=== PATIENT | female | born 1995 | race African-American/Black ===

== ENCOUNTER 2020-05-26 14:06 | Emergency (ER) | payer OTHER ==
[2020-05-26 14:20] VITALS: BMI 26.4
--- NOTE | 2020-05-26 14:27 | PDOC ---
History of Present Illness - General Chief Complaint: Blood Transfusion Stated Complaint: Blood Transfusion Time Seen by Provider: 05/26/20 14:26 History Source: Patient Exam Limitations: No Limitations - History of Present Illness Initial Comments: 05/26/20 14:26 Shwetha Viveros is a 25F @39 weeks with PMH iron deficiency anemia on iron supplementation sent by OFFICE ASSISTANT Dr. Mcekon for low Hgb and admission for blood transfusion. Patient has been longstanding iron-deficiency anemia on iron supplementation. Last was anemic but not low enough to need transfusion, had baby girl by . Currently at 39 weeks gestation without any complications, no HTN or DM. Seen by Dr. Mckeon, scheduled for elective on 06/01/20. Last Hgb 6.3, sent by OFFICE ASSISTANT for transfusion given she is to have surgery soon. Patient reports SOB when walking up stairs, much worse than baseline. Denies chest pain, orthostatic dizziness, difficulty breathing at rest. No N/V, no C/D, no bloody stools or vaginal bleeding. Has been taking iron pills without any r elief of symptoms. Never had blood transfusion before. Eating and drinking well without any issues. No urinary symptoms. No other PMH or PSH, no meds taken. Allergy to PCN is hives/rash. Denies alcohol/drugs/tobacco. Past History - Medical History Allergies/Adverse Reactions: Allergies Allergy/AdvReac Type Severity Reaction Status Date / Time Penicillins Allergy Intermediate Rash Verified 05/26/20 15:54 COPD: No - Reproductive History Is Patient Now?: Yes - Psycho-Social/Smoking History Smoking History: Never smoked Have you smoked in the past 12 months: No - Substance Abuse Hx (Audit-C & DAST Scrn) How often the patient has a drink containing alcohol: Never Score: In Men: 4 or > Positive; In Women: 3 or > Positive: 0 Screen Result (Pos requires Nsg. Audit-10AR): Negative In the last yr the pt used illegal drug/Rx for NonMed reason: No Score: Yes response is considered Positive: 0 Screen Result (Positive result requires Nsg. DAST-10): Negative Review of Systems - Review of Systems Able to Perform ROS?: Yes Constitutional: No: Symptoms Reported HEENTM: No: Symptoms Reported Respiratory: Yes: SOB with Exertion. No: Cough, Orthopnea, Shortness of Breath, SOB at Rest Cardiac (ROS): No: Chest Pain, Edema, Irregular Heart Rate, Lightheadedness, Palpitations, Syncope, Chest Tightness ABD/GI: No: Symptoms Reported : No: Symptoms Reported Musculoskeletal: No: Symptoms Reported Integumentary: No: Symptoms Reported Neurological: No: Symptoms reported Endocrine: No: Symptoms Reported Hematologic/Lymphatic: Yes: Anemia. No: Blood Clots, Easy Bleeding All Other Systems: Reviewed and Negative *Physical Exam - Vital Signs Last Vital Signs Temp Pulse Resp BP Pulse Ox 98.6 F 64 18 116/68 100 05/26/20 14:13 05/26/20 14:13 05/26/20 14:13 05/26/20 14:13 05/26/20 14:13 - Physical Exam General Appearance: Yes: Nourished, Appropriately Dressed, Other (gravid abdomen, resting in bed in NAD). No: Apparent Distress HEENT: positive: EOMI, RO, Normal Voice, Symmetrical, Pharynx Normal. negative: Scleral Icterus (R), Scleral Icterus (L), Pharyngeal Erythema, Tonsillar Exudate, Tonsillar Erythema Neck: positive: Normal Thyroid, Supple. negative: Tender, Rigid, Lymphadenopathy (R), Lymphadenopathy (L) Respiratory/Chest: positive: Lungs Clear, Normal Breath Sounds. negative: Chest Tender, Respiratory Distress, Accessory Muscle Use, Crackles, Rales, Rhonchi, Stridor, Wheezing Cardiovascular: positive: Regular Rhythm, Regular Rate. negative: Murmur Gastrointestinal/Abdominal: positive: Normal Bowel Sounds, Soft, Protuberent (gravid consistent with gestational age), Distended. negative: Tender, Organomegaly, Pulsatile Mass, Rebound, Tenderness Musculoskeletal: positive: Normal Inspection. negative: CVA Tenderness, CVA Tenderness (R), CVA Tenderness (L), Decreased Range of Motion, Vertebral Tenderness Extremity: positive: Normal Capillary Refill, Normal Inspection, Normal Range of Motion, Pelvis Stable. negative: Tender, Pedal Edema, Swelling Integumentary: positive: Normal Color, Dry, Warm Neurologic: positive: Fully Oriented, Alert, Normal Mood/Affect, Normal Response ED Treatment Course - LABORATORY CBC & Chemistry Diagram: 05/26/20 16:00 05/26/20 16:00 Medical Decision Making - Medical Decision Making 05/26/20 14:26 Patient has known history of anemia at 39 weeks, scheduled for in 6 days, sent for blood transfusion for symptomatic anemia and pre-op. Has had dirty UA asymptomatic bactiuria for the last month per records, never treated. Exam unremarkable, VSS. Getting repeat labs for eval anemia, ECG, UA/UC. Discussed benefits/risks od blood transfusion, patient consented to blood transfusion if needed. Contacting Dr. Mckeon for further clarification of anemia and UTI treatment. 05/26/20 15:27 ECG notable for sinus bradycardia, HR 59, QTc 417, no ESTEVAN/D, non-specific TWI in III, V2-V3. 05/26/20 15:[address] Mckeon, who would just like 2 units pRBCs and can be discharged after, not symptomatically anemia outpatient. Regarding prior UA, consistently contaminated, does not recommend treatment, would like culture and can treat pre-op. Treatment of bacteuria to prevent pre-term labor and IUGR, may not need treatment at this time. Given PCN allergy and 3rd trimester, no good medication for UTI treatment 05/26/20 16:55 Labs notable for: - Hgb 6.9 with MCV 67, consistent with microcytic anemia - Coags WNL - CMP WNL 05/26/20 17:24 Regular diet ordered. 2 units pRBCs ordered for anemia. Repeat CBC ordered once transfusion complete. 05/26/20 18:50 Will sign out to night team, complete blood tx, repeat CBC, dispo home likely. Discharge - Discharge Information Problems reviewed: Yes Clinical Impression/Diagnosis: Anemia Qualifiers: Anemia type: iron deficiency Iron deficiency anemia type: unspecified iron deficiency Qualified Code(s): D50.9 - Iron deficiency anemia, unspecified Qualifiers: Weeks of gestation: 39 weeks Qualified Code(s): Z3A.39 - 39 weeks gestation of Condition: Stable - Follow up/Referral Referrals: Nolberto Mckeon MD [Staff Physician] - - Patient Discharge Instructions Patient Printed Discharge Instructions: DI for Iron Deficiency Anemia-Adult, Anemia in Additional Instructions: Today you were seen for anemia before your delivery. Your hemoglobin is 6.9, and we gave you 2 units of red blood cells and your hemoglobin went back up. The rest of your labs are normal. At home, please continue to take your iron pills and eat a balanced diet. Follow-up with Dr. Mckeon as scheduled for your next week. If you experience any worsening symptoms, labor pains, chest pain, difficulty breathing, or any other new or concerning symptoms, please return to the emergency room. - Post Discharge Activity
[2020-05-26 16:26] LABS: BASO % 0.6 % (0-2.0); EOS % 0.1 % (0-4.5); HEMATOCRIT 22.1 % (32.4-45.2); LYMPH % 14.9 % (8-40); MCH 21.1 pg (25.7-33.7); MCHC 31.1 g/dl (32.0-36.0); MEAN CELL VOLUME 67.7 fl (80-96); MEAN PLT VOLUME 10.1 fl (7.5-11.1); MONO % 7.3 % (3.8-10.2); NEUT % 77.1 % (42.8-82.8); PLATELET COUNT 105 K/MM3 (134-434); RBC 3.26 M/mm3 (3.60-5.2); RDW 19.1 % (11.6-15.6); WHITE BLOOD COUNT 8.2 K/mm3 (4.0-10.0)
[2020-05-26 16:37] LABS: HEMOGLOBIN 6.9 GM/dL (10.7-15.3)
--- NOTE | 2020-05-26 16:42 | PDOC ---
Documentation entered by Michelle Merino SCRIBE, acting as scribe for Sherrill France MD. Sherrill France MD: This documentation has been prepared by the diogeneseWilber Ana, SCRIBE, under my direction and personally reviewed by me in its entirety. I confirm that the documentation accurately reflects all work, treatment, procedures, and medical decision making performed by me. Attending Attestation - Resident Resident Name: Jose Chaudhary - ED Attending Attestation I have performed the following: I have examined & evaluated the patient, The case was reviewed & discussed with the resident, I agree w/resident's findings & plan, Exceptions are as noted - HPI HPI: 05/26/20 14:42 Patient is a 25 year old female with a significant past medical history of iron deficiency anemia on iron supplementation, who presents to the ED, from obgyn's office, with low Hgb and admission for blood transfusion. Patient denies: any other related symptoms Allergies: NKDA - Physicial Exam PE: 06/04/20 13:30 agree with resident exam. Patient is alert and oriented and in no acute distress. Cv: rrr no m/r/g Pulm: CTA b/l abdomen: gravid, non tender, non distended no guarding or rebound. Ext: no edema - Medical Decision Making 06/04/20 13:54 Pt presents to the ED after sent in for transfusion for low hgb. Patient has some shortness of breath with exertion, but is otherwise asymptomatic. Will transfuse 2 units and discharge home . Discharge - Discharge Information Problems reviewed: Yes Clinical Impression/Diagnosis: Anemia Qualifiers: Anemia type: iron deficiency Iron deficiency anemia type: unspecified iron deficiency Qualified Code(s): D50.9 - Iron deficiency anemia, unspecified Qualifiers: Weeks of gestation: 39 weeks Qualified Code(s): Z3A.39 - 39 weeks gestation of Condition: Improved Disposition: HOME - Additional Discharge Information Goals: INSTRUCTIONS: Watch for S/S labor , breaking water, vaginal bleeding, and contractions. Also watch for decreased movement. Keep your appointment with Dr. Mckeon and your C SEction. HSY RN - Follow up/Referral Referrals: Nolberto Mckeon MD [Emergency Provider] - - Patient Discharge Instructions Patient Printed Discharge Instructions: DI for Iron Deficiency Anemia-Adult, Anemia in Additional Instructions: Today you were seen for anemia before your delivery. Your hemoglobin is 6.9, and we gave you 2 units of red blood cells and your hemoglobin went back up. The rest of your labs are normal. At home, please continue to take your iron pills and eat a balanced diet. Follow-up with Dr. Mckeon as scheduled for your next week. If you experience any worsening symptoms, labor pains, chest pain, difficulty breathing, or any other new or concerning symptoms, please return to the emergency room. - Post Discharge Activity
[2020-05-26 16:46] LABS: INR 0.99 (0.83-1.09); PROTHROMBIN TIME (PATIENT) 11.7 SEC (9.7-13.0)
[2020-05-26 16:49] LABS: ACTIVATED PTT 25.7 SECONDS (25.2-36.5)
[2020-05-26 17:15] LABS: BILIRUBIN,TOTAL 0.4 mg/dL (0.2-1); BLOOD UREA NITROGEN 8.8 mg/dL (7-18); CALCIUM 8.2 mg/dL (8.5-10.1); CREATININE 0.6 mg/dL (0.55-1.3); POTASSIUM 3.7 mmol/L (3.5-5.1)
[2020-05-26 17:55] LABS: ANISOCYTOSIS 3+; MACROCYTOSIS 2+; OVALOCYTE 1+
--- NOTE | 2020-05-26 20:03 | PDOC ---
*Physical Exam - Vital Signs Last Vital Signs Temp Pulse Resp BP Pulse Ox 98.1 F 70 18 112/84 100 05/26/20 19:45 05/26/20 19:45 05/26/20 19:45 05/26/20 19:45 05/26/20 19:45 ED Treatment Course - LABORATORY CBC & Chemistry Diagram: 05/26/20 22:30 05/26/20 16:00 - ADDITIONAL ORDERS Additional order review: Laboratory Results 05/26/20 05/26/20 05/26/20 16:00 16:00 16:00 PT with INR 11.70 INR 0.99 PTT (Actin FS) 25.7 Sodium 138 Potassium 3.7 Chloride 108 H Carbon Dioxide 22 Anion Gap 8 BUN 8.8 Creatinine 0.6 Est GFR (CKD-EPI)AfAm 144.78 Est GFR (CKD-EPI)NonAf 124.92 Random Glucose 61 L Calcium 8.2 L Total Bilirubin 0.4 AST 13 L ALT 10 L Alkaline Phosphatase 147 H Total Protein 7.0 Albumin 3.0 L Blood Type O POSITIVE Antibody Screen Negative Crossmatch See Detail 05/26/20 16:00 RBC 3.26 L MCV 67.7 L MCHC 31.1 L RDW 19.1 H MPV 10.1 Neutrophils % 77.1 Lymphocytes % 14.9 Monocytes % 7.3 Eosinophils % 0.1 Basophils % 0.6 Medical Decision Making - Medical Decision Making 05/27/20 06:39 pt signed out 25y F at 39w gestation presenting to ed for blood transfusion by avp. pt getting 2 units, will have next week. no contractions, vaginal bleeding, rectal bleeding. rpt cbc 8.8 ua and uc sent as per request of ob. does not require treatment at this time. will dc home. will go to L&D first for monitoring. 05/27/20 06:40 Discharge - Discharge Information Problems reviewed: Yes Clinical Impression/Diagnosis: Anemia Qualifiers: Anemia type: iron deficiency Iron deficiency anemia type: unspecified iron deficiency Qualified Code(s): D50.9 - Iron deficiency anemia, unspecified Qualifiers: Weeks of gestation: 39 weeks Qualified Code(s): Z3A.39 - 39 weeks gestation of Condition: Improved Disposition: HOME - Additional Discharge Information Goals: INSTRUCTIONS: Watch for S/S labor , breaking water, vaginal bleeding, and contractions. Also watch for decreased movement. Keep your appointment with Dr. Mckeon and your C SEction. HSY RN - Follow up/Referral Referrals: Nolberto Mckeon MD [Emergency Provider] - - Patient Discharge Instructions Patient Printed Discharge Instructions: DI for Iron Deficiency Anemia-Adult, Anemia in Additional Instructions: Today you were seen for anemia before your delivery. Your hemoglobin is 6.9, and we gave you 2 units of red blood cells and your hemoglobin went back up. The rest of your labs are normal. At home, please continue to take your iron pills and eat a balanced diet. Follow-up with Dr. Mckeon as scheduled for your next week. If you experience any worsening symptoms, labor pains, chest pain, difficulty breathing, or any other new or concerning symptoms, please return to the emergency room. - Post Discharge Activity
[2020-05-26 22:37] LABS: EPI CELLS >36 /uL (0-25.1); HYALINE CASTS 24 /uL (0-3.1); URINE APPEARANCE TURBID; URINE BACTERIA 7191 /uL (0-1359); URINE BILIRUBIN NEGATIVE (NEGATIVE); URINE COLOR YELLOW; URINE GLUCOSE (UA) NEGATIVE (NEGATIVE); URINE KETONE TRACE (NEGATIVE); URINE LEUK ESTERASE 1+ (NEGATIVE); URINE NITRITE NEGATIVE (NEGATIVE); URINE PROTEIN 1+ (NEGATIVE); URINE WBC 206 /uL (0-25.8)
[2020-05-26 22:39] LABS: HEMATOCRIT 27.7 % (32.4-45.2); HEMOGLOBIN 8.8 GM/dL (10.7-15.3); MCH 22.5 pg (25.7-33.7); MCHC 31.6 g/dl (32.0-36.0); MEAN CELL VOLUME 71.1 fl (80-96); MEAN PLT VOLUME 9.7 fl (7.5-11.1); PLATELET COUNT 107 K/MM3 (134-434); RDW 22.5 % (11.6-15.6); WHITE BLOOD COUNT 8.4 K/mm3 (4.0-10.0)
[2020-05-26 22:59] LABS: URINE RBC 13.8 /uL (0-23.9)
[2020-05-27 02:28] VITALS: BP 123/74; PULSE 64; TEMP 98.1
--- NOTE | 2020-05-27 10:40 | EKG ---
Test Reason : Blood Pressure : / mmHG Vent. Rate : 059 BPM Atrial Rate : 059 BPM P-R Int : 170 ms QRS Dur : 098 ms QT Int : 422 ms P-R-T Axes : 009 -03 004 degrees QTc Int : 417 ms SINUS BRADYCARDIA LOW VOLTAGE QRS INCOMPLETE RBBB NONSPECIFIC T WAVE ABNORMALITY ABNORMAL ECG NO PREVIOUS ECGS AVAILABLE Confirmed by UZIEL MONGE MD ([id number]) on 05/27/2020 10:40:33 AM Referred By: Confirmed By:UZIEL MONGE MD
== END 2020-05-27 00:50 | disposition home or self-care (01) ==
LOC: JER 14:06
DX: D50.9 Iron deficiency anemia, unspecified (principal); Z3A.39 39 weeks gestation of pregnancy
CPT/HCPCS: 36415; 36430; 80053; 81003; 85025; 85027; 85610; 85730; 86850; 86900; 86901; 86922; 87086; 93005; 93010; 99284-25; P9058; U0003

== ENCOUNTER 2020-06-01 06:40 | Inpatient (IN) | payer OTHER ==
--- OUTSIDE RECORDS SUMMARY | 2020-06-01 07:30 | XMS ---
:1995 Author Organization [facility] Support Name Relationship Address Phone VIPIN ROWLEY OTHER RELATIONSHIP [address] [place] [address] [phone] [id number] [place] [address] UE, UNEMPLOYED Unavailable Unavailable Unavailable UE Unavailable Unavailable Unavailable TIN CHAIREZ [address] [place] [address] [place] [address] [place] [address] Re-disclosure Warning The records that you are about to access may contain information from federally- assisted alcohol or drug abuse programs. If such information is present, then the following federally mandated warning applies: This information has been disclosed to you from records protected by federal confidentiality rules (42 CFR part 2). The federal rules prohibit you from making any further disclosure of this information unless further disclosure is expressly permitted by the written consent of the person to whom it pertains or as otherwise permitted by 42 CFR part 2. A general authorization for the release of medical or other information is NOT sufficient for this purpose. The Federal rules restrict any use of the information to criminally investigate or prosecute any alcohol or drug abuse patient.The records that you are about to access may contain highly sensitive health information, the redisclosure of which is protected by Article 27-F of the [facility] Public Health law. If you continue you may haveaccess to information: Regarding HIV / AIDS; Provided by facilities licensed or operated by the [facility] Office of Mental Health; or Provided by the [facility] Office for People With Developmental Disabilities. If such information is present, then the following [facility] mandated warning applies: This information has been disclosed to you from confidential records which are protected by state law. State law prohibits you from making any further disclosure of this information without the specific written consent of the person to whom it pertains, or as otherwise permitted by law. Any unauthorized further disclosure in violation of state law may result in a fine or nursing home sentence or both. A general authorization for the release of medical or other information is NOT sufficient authorization for further disclosure. Insurance Providers Payer name Policy type Policy ID Covered Covered democrat's Policy P jaden / Coverage democrat ID relationship to [employer] ormation type lowe SELF PAY SP INSURANCE HE[employer] FIRST [id number] SP [id number] S MEDICAID [id number] SP [id number] Results ID Date Data Source [id number] 05/26/2020 05:24:00 PM EDT [facility] Name Value Range Interpretation Description Data Sup porting Code Source(s) Document(s ) SARS [facility] coronavirus 2 RNA This lab was ordered by [facility] and reported by [facility]. Procedure
--- NOTE | 2020-06-01 08:02 | HP ---
Past Medical History - Primary Care Physician PCP:: Nolberto Mckeon E - Admission Chief Complaint: Repeat c/section History of Present Illness: Pt is admitted for repeat c/section (second) at term (39+ wks) complicated by severe anemia. Recently transfused 2 units of P/C. GBS pos. Good growth, surveillance studies. 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: No: Alzheimer's, CVA, Dementia, Migraine, Multiple Sclerosis, Peripheral Neuropathy, Parkinson's, Seizure, Syncope, TIA, Vertigo, Other Cardiovascular: No: AFIB, Aneurysm, Aortic Insufficiency, Aortic Stenosis, CAD, CHF, Deep Vein Thrombosis, HTN, Hyperlipdemia, [place], Mitral Insufficiency, Mitral Stenosis, Murmur, Pulmonary Hypertension, Other Pulmonary: No: Asthma, Bronchitis, Cancer, COPD, O2 Dependent, Pneumonia, Previously Intubated, Pulmonary Embolus, Pulmonary Fibrosis, Sleep Apnea, Other Gastrointestinal: No: Ascites, Cancer, Constipation, Crohn's Disease, Diverticulitis, Diverticulosis, Esophageal Varices, Gastritis, GERD, GI Bleed, Hemorrhoids, Hiatal Hernia, Inflamatory Bowel Disease, Irritable Bowel Disease, Pancreatitis, Peptic Ulcer Disease, Ulcerative Colitis, Other Hepatobiliary: No: Cirrhosis, Cholelithiasis, Cholecystitis, Choledocholithiasis, Hepatitis A, Hepatitis B, Hepatitis C, Other Renal/: No: Renal Failure, Renal Inusuff, BPH, Cancer, Hematuria, Hemod ialysis, Neurogenic Bladder, Renal Calculi, UTI, Other Reproductive: No: Ectopic , Endometriosis, Fibroids, PID, Polycystic Ovary Syndrome, Postmenopausal, Other Heme/Onc: No: Anemia, B12 Deficiency, Bleeding Disorder, Cancer, Current Chemotherapy, Current Radiation Therapy, Hemochromatosis, Hypercoaguable State, Myeloproliferative Synd, Sickle Cell Disease, Sickle Cell Trait, Thrombocytopenia, Other Infectious Disease: No: AIDS, C-Diff, Herpes Zoster, HIV, MRSA, STD's, Tuberculosis, VREF, Other Psych: No: Addictions, Anxiety, Bipolar, Depression, Panic, Psychosis, Schizophrenia, Other Musculoskeletal: No: Bursitis, Chronic low back pain, Hemiparesis, Hemiplegia, Osteoarthritis, Paraplegia, Other ENT: No: Allergic Rhinitis, Sinusitis, Other Endocrine: No: Kent's Disease, [place]'s Disease, Diabetes Insipidus, Diabetes Mellitus, Hyperparathyroidism, Hyperthyroidism, Hypothyroidism, Osteopenia, SIADH, Other Dermatology: No: Basal Cell, Cellulitis, Eczema, Melanoma, Psoriasis, Squamous Cell, Other - Past Surgical History Past Surgical History: Yes: Hx Myomectomy: No Hx Transabdominal Cerclage: No - Social History Usual Living Arrangement: Yes: With Significant Other Family Medical History Family History: Unremarkable Review of Systems - Review of Systems Constitutional: reports: No Symptoms Eyes: reports: No Symptoms HENT: reports: No Symptoms Neck: reports: No Symptoms Cardiovascular: reports: No Symptoms Respiratory: reports: No Symptoms Gastrointestinal: reports: No Symptoms Genitourinary: reports: No Symptoms Breasts: reports: No Symptoms Reported Musculoskeletal: reports: No Symptoms Integumentary: reports: No Symptoms Neurological: reports: No Symptoms Endocrine: reports: No Symptoms Hematology/Lymphatic: reports: No Symptoms Psychiatric: reports: No Symptoms Physical Exam - Maternity Constitutional: Yes: Well Nourished, No Distress, Calm Eyes: Yes: WNL, Conjunctiva Clear, EOM Intact HENT: Yes: WNL, Atraumatic, Normocephalic Neck: Yes: WNL, Supple, Trachea Midline Cardiovascular: Yes: WNL, Regular Rate and Rhythm Breast(s): Yes: WNL - Abdominal Exam/OB Fundal Height: 38 Number of Fetuses: Single Presentation: Vertex Contractions: No Monitor Mode: External Heart Rate (range): 140 Heart Rate Location: [facility] Category: I Accelerations: Uniform Decelerations: None - Vaginal Exam/OB Presentation: Vertex/Position Station: -2 - Physical Exam Musculoskeletal: Yes: WNL Extremities: Yes: WNL Integumentary: Yes: WNL ...Motor Strength: WNL Psychiatric: Yes: WNL Hemorrhage Risk Assessment - Risk Factors Medium Risk Factors: Yes: Prior , uterine surgery,or multiple laparotomies Risk Score: 1 Risk Level: Medium Risk Problem List - Problems (1) with 39 completed weeks gestation Code(s): Z3A.39 - 39 WEEKS GESTATION OF (2) Previous section Code(s): Z98.891 - HISTORY OF UTERINE SCAR FROM PREVIOUS SURGERY Assessment/Plan For repeat c/section. Alternatives, risks, poss. complications fully discussed. Pt. understands and consents. Boy; pt requests circumcision.
[2020-06-01] MEDS ORDERED: CITRIC ACID/SODIUM CITRATE 30 ML UNIT-DOSE CUP PO ONE (08:06)
[2020-06-01 08:29] VITALS: BMI 26.6
[2020-06-01] MEDS ORDERED: PHENYLEPHRINE HCL 10 MG/1 ML SINGLE DOSE VIAL ONE ×2 (09:24→09:25)
[2020-06-01] MEDS ORDERED: morphine SULFATE/PF 0.5 MG/ML (2cc Syringe - QUVA) ONE (09:25)
[2020-06-01] MEDS ORDERED: ePHEDrine SULFATE 50 MG/1 ML AMPULE ONE (09:25)
[2020-06-01] MEDS ORDERED: OXYTOCIN 20 UNITS in 0.9% NS 20 UNIT/1,000 ML INFUS.BAG IV ONE ×2 (09:27→11:01)
[2020-06-01] MEDS ORDERED: ceFAZolin SODIUM 1 GM VIAL ONE (09:31)
[2020-06-01] MEDS ORDERED: SUCCINYLCHOLINE CHLORIDE 200 MG/10 ML SYRINGE ONE (09:33)
[2020-06-01] MEDS ORDERED: LIDOCAINE HCL 1% PRESERVATIVE FREE - 30ML VIAL ONE (09:59)
[2020-06-01] MEDS ORDERED: OXYTOCIN 10 UNITS/ML VIAL ONE (10:26)
--- NOTE | 2020-06-01 11:18 | PN ---
Delivery - Delivery Section: Repeat, Low Flap Transverse Type of Anesthesia: Spinal EBL (cc): 600 Delivery, Single - Condition of Infant Gender: Male Position: Left, OT - Amasa Feeding Plan Initial Plan: Elected not to breastfeed exclusively throughout hospitalization Remarks - Remarks Remarks: Uneventful c/section. Delayed cord clamping. D/W anesthesia - transfuse 1 u. of P/C in view of severe anemia during the .
[2020-06-01] MEDS ORDERED: ONDANSETRON 4 MG/2 ML VIAL IVPUSH PRN (11:24)
[2020-06-01] MEDS ORDERED: morphine SULFATE/PF 0.5 MG/ML (2cc Syringe - QUVA) EP ONE (11:25)
[2020-06-01] MEDS ORDERED: ACETAMINOPHEN 325 MG TABLET (FP) PO PRN ×2 (11:25→11:27)
[2020-06-01] MEDS ORDERED: oxyCODONE HCL 5 MG TABLET PO PRN (11:27)
[2020-06-01] MEDS ORDERED: WITCH HAZEL 50% (TUCKS) 40 PAD/JAR PAD TP PRN (11:27)
[2020-06-01] MEDS ORDERED: SENNOSIDES/DOCUSATE COMBO (SENNA PLUS) TABLET (UD) PO PRN (11:27)
[2020-06-01] MEDS ORDERED: ONDANSETRON 4 MG/2 ML VIAL IVPB PRN (11:27)
--- NOTE | 2020-06-01 11:37 | OP ---
Operative Note - Note: Operative Date: 06/01/20 Pre-Operative Diagnosis: 39 weeks (term gestation Operation: Repeat, Low Flap Transverse Section Post-Operative Diagnosis: Same as Pre-op Surgeon: Nolberto Mckeon Coining Press Operator: Montez Steele Anesthesiologist/CAPACITOR PACK PRESS OPERATOR: Selam Segura Anesthesia: Spinal Estimated Blood Loss (mls): 600 Drains, Volume Out (mls): 100 (cardenas) Fluid Volume Replaced (mls): 650 Operative Report Dictated: Yes
--- NOTE | 2020-06-01 11:40 | SURG ---
Surgery Deburring And Tooling Machine Operator Note Deburring And Tooling Machine Operator: Montez Steele PA-C Date of Service: 06/01/20 Diagnosis: 39 weeks gestation; requesting repeat section Procedure: Repeat, Low Flap Transverse Section I was present for the entirety of the operative procedure. For further detail, please refer to operative report. Visit type - Case Type Case Type: Scheduled - New patient This patient is new to me today: Yes Date on this admission: 06/01/20
[2020-06-01] MEDS ORDERED: ACETAMINOPHEN INJECTION 100 ML IVPB ONE (13:58)
[2020-06-01] MEDS: ACETAMINOPHEN 1000 MG/100 ML VIAL (NON FORMULARY) IVPB PRN ×2 (14:01→20:41)
[2020-06-01] MEDS: IBUPROFEN 800 MG/8 ML IJ IVPB PRN (16:36)
--- NOTE | 2020-06-01 16:55 | OP ---
DATE OF OPERATION: 06/01/2020 PREOPERATIVE DIAGNOSIS: 1. Intrauterine , high risk, at term. 2. Previous section. 3. Severe anemia during the requiring transfusions. POSTOPERATIVE DIAGNOSIS: 1. Intrauterine , high risk, at term. 2. Previous section. 3. Severe anemia during the requiring transfusions. PROCEDURE: Repeat, low segment, transverse section. SURGEON: Evelyn Macedo MD. MOTION GRAPHICS ARTIST: JER Murillo. ANESTHESIOLOGIST: Selam Segura MD. ANESTHESIA: Spinal. DESCRIPTION OF PROCEDURE: Under excellent spinal block, following routine prep and drape in dorsal supine position with left lateral tilt, abdomen was entered through the old, well-healed Pfannenstiel scar. Incision was carried through the subcutaneous tissue transversely and fascia was opened transversely as well. Rectus muscles were dissected off the fascia, and peritoneum was entered sharply in the superior part of the incision. Peritoneal incision was extended vertically. Term uterus was noted with normal adnexa. It was compatible with 38 weeks of gestation. Bladder flap was incised and peeled off the lower uterine segment bluntly. Hysterotomy was performed transversely and extended with bandage scissors. Clear amniotic fluid was noted. Male, live infant was delivered, cried and breathed spontaneously. Cord was divided, and baby was handed over to the neonatology team. Cord blood was obtained. Placenta was removed manually and uterine cavity was cleaned. The internal os was opened with a sponge stick. Hysterotomy was closed with a continuous running Biosyn 0 interlocking suture. Mid portion of the incision was a small hematoma growing. This was secured with single mattress Biosyn 0 suture. Afterwards, hemostasis was excellent. Pelvis was lavaged. Uterus was placed anatomically in the pelvis. Count was reported as correct. Abdomen was closed in layers . Peritoneum was closed with continuous running Biosyn 2-0 suture. Fascia was closed with continuous running Vicryl 1 suture. Subcutaneous tissue was approximated with interrupted 3-0 Vicryl sutures and skin was approximated with subcuticular V-Loc 3-0 running suture and Steri-Strips. Sterile dressing was applied. It was held with binder. Urine was clear and copious in the Orr catheter bag. Estimated blood loss was 600 mL. It was discussed with anesthesia, and decision was made to transfuse patient 1 unit of packed cells in view of severe anemia, Recently, this required transfusion of 2 units less than a week before this admission, H and H were relatively low levels at the beginning of the procedure. Her condition however remained completely stable throughout the surgery. Patient was transferred to the post-anesthesia unit, comfortable, stable and awake. EVELYN MACEDO MD [id number] MTDD
[2020-06-01] MEDS: OXYTOCIN 20 UNITS in 0.9% NS 20 UNIT/1,000 ML INFUS.BAG IV SCH (18:00)
[2020-06-02] MEDS: IBUPROFEN 800 MG/8 ML IJ IVPB PRN (00:54)
[2020-06-02] MEDS: ACETAMINOPHEN 1000 MG/100 ML VIAL (NON FORMULARY) IVPB PRN (06:40)
--- NOTE | 2020-06-02 07:54 | PN ---
Progress Note (short form) - Note Progress Note: SURGERY 25yo F s/p . Pt seen and examined at bedside. Pt states that abd pain is controlled. Denies fever, chills, n/v. Urinating and ambulating well. Last Vital Signs Temp Pulse Resp BP Pulse Ox 98.6 F 60 20 119/69 97 06/02/20 06:10 06/02/20 06:10 06/02/20 06:41 06/02/20 06:10 06/01/20 18:00 PE: Gen: A&O X3 Resp: breathing comfortably Abd: soft, nondistended, mild lower abd tenderness, incision clean with no erythema or discharge. Ext: no edema Problem List - Problems (1) Previous delivery, delivered Assessment/Plan: Plan -pt appears to be doing well -oob/ambulate -regular diet -pain control Pt discussed with Dr. Pulliam who agrees with plan. Code(s): O34.219 - MATERNAL CARE FOR UNSP TYPE SCAR FROM PREVIOUS DEL
[2020-06-02 08:18] LABS: BASO % 0.5 % (0-2.0); EOS % 0.2 % (0-4.5); HEMATOCRIT 25.5 % (32.4-45.2); LYMPH % 8.2 % (8-40); MCH 22.3 pg (25.7-33.7); MCHC 31.4 g/dl (32.0-36.0); MEAN CELL VOLUME 70.9 fl (80-96); MEAN PLT VOLUME 10.3 fl (7.5-11.1); MONO % 6.1 % (3.8-10.2); PLATELET COUNT 194 K/MM3 (134-434); RDW 22.6 % (11.6-15.6); WHITE BLOOD COUNT 12.3 K/mm3 (4.0-10.0)
[2020-06-02] MEDS: IBUPROFEN 600 MG TABLET (FP) PO PRN ×3 (10:04→19:34)
[2020-06-02] MEDS: oxyCODONE HCL 5 MG TABLET PO PRN ×3 (10:04→19:33)
[2020-06-02] MEDS: SIMETHICONE 80 MG TAB.CHEW (FP) PO PRN ×3 (10:06→19:34)
--- NOTE | 2020-06-02 10:14 | PN ---
Progress Note (short form) - Note Progress Note: Anesthesiology post op check Post op day one s/p c section under spinal anesthesia with duramorph for post op pain control. Patient doing well, pain this morning treated the analgesics, itching controlled, no other adverse effect of anesthetic, dept of anesthesiology will sign off care at this time.
[2020-06-02 10:18] LABS: ANISOCYTOSIS 2+; MACROCYTOSIS 0; OVALOCYTE 1+; PLATELET ESTIMATE NORMAL
[2020-06-02] MEDS ORDERED: BISACODYL 10 MG SUPP.RECT RC PRN (11:27)
[2020-06-02] MEDS: OXYTOCIN 20 UNITS in 0.9% NS 20 UNIT/1,000 ML INFUS.BAG IV SCH (16:57)
[2020-06-03] MEDS: oxyCODONE HCL 5 MG TABLET PO PRN ×2 (00:11→12:03)
[2020-06-03] MEDS: IBUPROFEN 600 MG TABLET (FP) PO PRN ×3 (00:11→12:03)
[2020-06-03] MEDS: SIMETHICONE 80 MG TAB.CHEW (FP) PO PRN (00:14)
--- NOTE | 2020-06-03 07:54 | DS ---
Physical Exam: SUBJECTIVE: Patient seen and examined. Doing well. OOB and ambulating unassisted. Tolerating PO diet. Voiding spontaneously. Denies n/v/f/c, CP, p alpitations, SOB or BUNDY. OBJECTIVE: Vital Signs Temperature 99.1 F 06/02/20 22:00 Pulse Rate 63 06/02/20 22:00 Respiratory Rate 18 06/02/20 22:00 Blood Pressure 124/73 06/02/20 22:00 O2 Sat by Pulse Oximetry (%) 97 06/01/20 18:00 PHYSICAL EXAM GENERAL: The patient is awake, alert, and fully oriented, in no acute distress. HEAD: Normal with no signs of trauma. EYES: PERRL, extraocular movements intact, sclera anicteric, conjunctiva clear. ENT: Ears normal, nares patent, oropharynx clear without exudates, moist mucous membranes. NECK: Trachea midline, full range of motion, supple. LUNGS: Breath sounds equal, clear to auscultation bilaterally, no wheezes, no crackles, no accessory muscle use. HEART: Regular rate and rhythm, S1, S2 without murmur, rub or gallop. ABDOMEN: Soft, incision c/d/i. EXTREMITIES: 2+ pulses, warm, well-perfused, no edema. NEUROLOGICAL: Cranial nerves II through XII grossly intact. Normal speech, gait not observed. PSYCH: Normal mood, normal affect. SKIN: Warm, dry, normal turgor, no rashes or lesions noted. LABS CBC,CMP WBC 12.3 K/mm3 (4.0-10.0) H 06/02/20 07: RBC 3.60 M/mm3 (3.60-5.2) 06/02/20 07:28 Hgb 8.0 GM/dL (10.7-15.3) L 06/02/20 07:28 Hct 25.5 % (32.4-45.2) L 06/02/20 07:28 MCV 70.9 fl (80-96) L 06/02/20 07:28 MCH 22.3 pg (25.7-33.7) L 06/02/20 07:28 MCHC 31.4 g/dl (32.0-36.0) L 06/02/20 07: RDW 22.6 % (11.6-15.6) H 06/02/20 07:28 Plt Count 194 K/MM3 (134-434) 06/02/20 07:28 MPV 10.3 fl (7.5-11.1) 06/02/20 07:28 Absolute Neuts (auto) 10.4 K/mm3 (1.5-8.0) H 06/02/20 07:28 Neutrophils % 85.0 % (42.8-82.8) H 06/02/20 07:28 Lymphocytes % 8.2 % (8-40) D 06/02/20 07:28 Monocytes % 6.1 % (3.8-10.2) 06/02/20 07:28 Eosinophils % 0.2 % (0-4.5) D 06/02/20 07:28 Basophils % 0.5 % (0-2.0) 06/02/20 07:28 Nucleated RBC % 0 % (0-0) 06/02/20 07:28 Hypochromia 1+ 06/02/20 07:28 Platelet Estimate Normal 06/02/20 07:28 Polychromasia 1+ 06/02/20 07:28 Poikilocytosis 1+ 06/02/20 07:28 Anisocytosis 2+ 06/02/20 07:28 Microcytosis 2+ 06/02/20 07:28 Macrocytosis 0 06/02/20 07:28 Ovalocytes 1+ 06/02/20 07:28 HOSPITAL COURSE: Date of Admission:06/01/20 Date of Discharge: 06/03/20 The patient was admitted to the L&D Unit after an elective Repeat, Low Flap Transverse Section. Pain management was achieved with a narcotic and non-narcotic oral and IV regimen. POD #1, the patient passed flatus and diet was advanced. Hemoglobin and hematocrit were monitored as well as vitals and remained stable throughout admission. DVT prophylaxis was achieved with SCDs and early ambulation. The patient ambulated the halls without issue. Narcotic scripts were checked with [facility] prior to escribe. The discharge instructions and an oral pain management plan were reviewed with the patient. All questions answered. Above plan discussed with Dr. Pulliam (covering for Dr. Mckeon) and agreed. Minutes to complete discharge: 35 Visit type - Case Type Case Type: Scheduled
[2020-06-03 09:40] VITALS: BP 128/80; PULSE 62; TEMP 98.7
--- NOTE | 2020-06-08 17:24 | PATH ---
Surgical Pathology Report Patient Name: JOHN CHAIREZ Med. Rec. #: [id number] /Age/Gender: 1995 (Age: 25) / F Account: [id number] Location: [facility] OBS/[facility]RUP [facility]KER Taken: 06/01/2020 Received: 06/02/2020 Reported: 06/08/2020 Physicians: Nolberto Mckeon MD Specimen(s) Received PLACENTA Clinical History , severe anemia, neuroblastoma therapy till age 5 Final Diagnosis PLACENTA, SECTION: 444 G THIRD TRIMESTER PLACENTA WITH TRIVASCULAR UMBILICAL CORD AND UNREMARKABLE PLACENTAL MEMBRANES. Electronically Signed Eun Burch M.D. Gross Description The specimen is received fresh labeled placenta and is a 444 gram, 17.0 x 13.0 x 3.3 cm. placenta with attached membranes and umbilical cord. The attached membranes are marcano, translucent with focal opacities and insert marginally. The umbilical cord measures 18 cm. in length and averages 1.2 cm. in diameter. The cord inserts eccentrically, 2 cm. to the nearest margin. No true knots or strictures are identified. Cut surface of the umbilical cord reveals 3 vessels. The surface is dang blue with moderate fibrin deposition and appropriate caliber vessels. The maternal surface is red-brown with focal defects. Sectioning reveals red-brown, spongy parenchyma. No lesions are identified. [place] Swallower sections are submitted in three cassettes as follows: 1- membrane rolls and umbilical cord; 2-3- full thickness sections of placenta. 06/07/2020 saudi06/07/2020
== END 2020-06-03 12:45 | disposition home or self-care (01) | DRG 540 ==
LOC: JLDR 06:40 → MERGE 06:40 → J3W 14:27
PROVIDERS: ADMIT Specialist; ATTEND Specialist
PROC: 10D00Z1 Extraction of Products of Conception, Low, Open Approach (ICD-10-PCS; principal; 2020-06-01)
PROC: 30233N1 Transfusion of Nonautologous Red Blood Cells into Peripheral Vein, Percutaneous Approach (ICD-10-PCS; 2020-06-01)
DX: O82 Encounter for cesarean delivery without indication (principal); O34.219 Maternal care for unspecified type scar from previous cesarean delivery; O99.02 Anemia complicating childbirth; D64.9 Anemia, unspecified; O99.824 Streptococcus B carrier state complicating childbirth; Z3A.39 39 weeks gestation of pregnancy; Z37.0 Single live birth; Z88.0 Allergy status to penicillin
CPT/HCPCS: 36415; 85025; 88307-TC; J0131; P9058